=== PATIENT | male | born 1995 ===

== ENCOUNTER 2018-07-19 02:53 | Emergency (ER) | payer SELFPAY ==
--- NOTE | 2018-07-19 07:44 | RAD ---
XR Hand Rt 3 View STANDARD HISTORY: Right hand pain, injury FINDINGS: No fracture or dislocation is identified. No
== END 2018-07-19 03:51 | disposition home or self-care (01) ==
LOC: ERS 02:53
DX: S63.616A Unspecified sprain of right little finger, initial encounter (principal); F17.210 Nicotine dependence, cigarettes, uncomplicated; W23.0XXA Caught, crushed, jammed, or pinched between moving objects, initial encounter